=== PATIENT | female | born 1995 | race Caucasian/White ===

== ENCOUNTER 2021-12-20 11:51 | Outpatient (CLI) | payer OTHER, SELFPAY ==
--- NOTE | 2021-12-20 | US_ITS ---
WS: [id number] TRANSABDOMINAL PELVIC AND TRANSVAGINAL PELVIC ULTRASOUND HISTORY: MENORRHAGIA COMPARISON: None available. Uterus: 6.9 cm x 5.2 cm x 4.1 cm. Normal size anteverted uterus. No fibroid or mass. Endometrium: 0.7 cm. Normal homogeneity. No increased vascularity. No mass. Right ovary: 3.9 cm x 3.6 cm x 2.2 cm. Normal vascularity. No mass. Small follicles. Left ovary: 3.0 cm x 1.3 cm x 3.0 cm. Normal vascularity. No mass. Small follicles. No free fluid. US/US pelvic with transvaginal IMPRESSION: Normal pelvic ultrasound. Normal endometrium.
== END 2021-12-20 11:52 | disposition home or self-care (01) ==
LOC: RAD 11:52
PROVIDERS: PCP Obstetrics & Gynecology; Visit Provider Nurse Practitioner Obstetrics & Gynecology
DX: N92.0 Excessive and frequent menstruation with regular cycle (principal)
CPT/HCPCS: 76830; 76856

== ENCOUNTER → 2023-06-17 11:56 | Outpatient (BNVA) | payer OTHER, SELFPAY | PROVIDERS: PCP Obstetrics & Gynecology; Visit Provider Family Medicine | DX: N92.1 Excessive and frequent menstruation with irregular cycle (principal); Z13.6 Encounter for screening for cardiovascular disorders; D50.9 Iron deficiency anemia, unspecified | CPT/HCPCS: 80053; 82670; 82728; 83001; 83002; 83550; 84403; 84443; 85025 ==

== ENCOUNTER → 2023-07-30 15:50 | Outpatient (BNVA) | payer OTHER, SELFPAY | PROVIDERS: PCP Obstetrics & Gynecology; Referring Provider Family Medicine; Visit Provider Nurse Practitioner Women's Health | DX: Z12.4 Encounter for screening for malignant neoplasm of cervix (principal); N93.9 Abnormal uterine and vaginal bleeding, unspecified | CPT/HCPCS: 81025; 88175 ==

== ENCOUNTER → 2023-08-28 13:10 | Outpatient (BNVA) | payer OTHER, SELFPAY | PROVIDERS: PCP Obstetrics & Gynecology; Visit Provider Nurse Practitioner Women's Health | DX: N93.9 Abnormal uterine and vaginal bleeding, unspecified (principal) | CPT/HCPCS: 76830 ==